=== PATIENT | female | born 2000 | race American Indian/Alaskan Native ===

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

== ENCOUNTER 2020-04-18 14:54 | Emergency (ER) | payer SELFPAY ==
[2020-04-18 15:04] VITALS: BP 118/77
== END 2020-04-18 17:10 | disposition left against medical advice (07) ==
LOC: ED 14:54
DX: Z53.21 Procedure and treatment not carried out due to patient leaving prior to being seen by health care provider (principal)